=== PATIENT | male | born 1950 | race Caucasian/White ===

== ENCOUNTER → 2016-12-29 | Outpatient (CLI) | payer MEDICARE, OTHER ==
[2016-12-29 10:20] LABS: HEMOGLOBIN 13.8 gm/dl (14.0-17.5); RED BLOOD COUNT 4.78 M/UL (4.20-5.50); WHITE BLOOD COUNT 6.1 K/UL (4.5-11.0)
[2016-12-29 10:47] LABS: BUN/CREATININE RATIO 17 (0-10)
== END ==
LOC: LAB 09:27
PROVIDERS: Colon & Rectal Surgery
DX: C20 Malignant neoplasm of rectum (principal)
CPT/HCPCS: 36415; 80053; 85025

== ENCOUNTER → 2017-02-24 | Outpatient (CLI) | payer MEDICARE, OTHER ==
[2017-02-24 10:27] LABS: HEMOGLOBIN 13.3 gm/dl (14.0-17.5); RED BLOOD COUNT 4.47 M/UL (4.20-5.50)
[2017-02-24 10:46] LABS: BUN/CREATININE RATIO 16 (0-10)
== END ==
LOC: LAB 09:33
PROVIDERS: Colon & Rectal Surgery
DX: C20 Malignant neoplasm of rectum (principal); R91.8 Other nonspecific abnormal finding of lung field
CPT/HCPCS: 36415; 71020; 80053; 82378; 85025; 93005